=== PATIENT | female | born 2000 | race Caucasian/White ===

== ENCOUNTER 2024-08-02 10:18 | Emergency (ER) | payer SELFPAY ==
--- NOTE | 2024-08-02 10:25 | ECG_ITS ---
[facility]: 2024-08-02 Pat Name: Kayleen Barry Department: Room: Gender: Female Operating Room Surgical Technician: : 2000 Requested By: Dean Coyle Order Number: [id number] Merchant MD: Kip Pierce M.D. Measurements Intervals Lead Rate: 71 P: 62 IA: 113 QRS: 81 QRSD: 110 T: 62 QT: 403 QTc: 440 Interpretive Statements SINUS RHYTHM WITH SINUS ARRHYTHMIA WITH SHORT IA INTERVAL INCOMPLETE RIGHT BUNDLE BRANCH BLOCK [90+ ms QRS DURATION, TERMINAL R IN V1/V2, 40+ ms S IN I/aVL/V4/V5/V6] No previous ECG available for comparison Electronically Signed On 08-04-2024 18:53:59 DRYING ROOM SUPERVISOR by Kip Pierce M.D. [email or web address]
[2024-08-02 10:27] VITALS: BP 144/85; PULSE 69; RESP 17; TEMP 37; O2SAT 100; BMI 23.0
--- NOTE | 2024-08-02 10:30 | XRR_ITS ---
PROCEDURE INFORMATION: Exam: XR Chest Exam date and time: 08/02/2024 10:44 AM Age: 24 years old Clinical indication: Pain; Shortness of breath; Angina pectoris; Patient HX: SOB and weakness; Additional info: Chest pain TECHNIQUE: Imaging protocol: Radiologic exam of the chest. Views: 1 view. COMPARISON: No relevant prior studies available. FINDINGS: Lungs: Unremarkable. No consolidation. Pleural spaces: Unremarkable. No pleural effusion. No pneumothorax. Heart/Mediastinum: Unremarkable. No cardiomegaly. Bones/joints: Unremarkable. XR/XR chest 1V portable [id number] IMPRESSION: No acute findings.
--- NOTE | 2024-08-02 10:35 | ED_ITS ---
HPI - Chest Pain 2 General: Chief Complaint: Chest Pain Stated Complaint: CP, SOB Time Seen by Provider: 08/02/24 10:22 History of Present Illness: Patient presents to the ER with intermittent sharp lightening bolt shooting stabbing chest pain worse when she takes a big deep breath. It started earlier today this time. But it has been going off and on for last 3 months. There is no known triggers or relieving factors. She has been seen by her PCP for this they thought may be due to anxiety they have gave her some anxiety medicine has helped a little bit. Patient was just sitting in her chair laughing and talking today when it started. Patient says when it happens she does get mildly short of breath but denies any nausea vomiting diaphoresis. Related Data Home Medications Medication Instructions Recorded Confirmed buspirone 5 mg tablet 5 mg PO BID 08/02/24 08/02/24 lurasidone 40 mg tablet 40 mg PO DAILY 08/02/24 08/02/24 Allergies Allergy/AdvReac Type Severity Reaction Status Date / Time Penicillins Allergy Unknown Verified 08/02/24 10:30 Review of Systems 2 General: Reports: 10 or more systems reviewed and unremarkable except in HPI and below [facility] ED 2 Female Reproductive History: Date of last menstrual period: 08/02/24 Physical Exam 2 Const: COMMON NORMALS: no acute distress, average body habitus, patient oriented x3, no limitations, healthy appearing, alert and well nourished HENMT: COMMON NORMALS: normocephalic, atraumatic, hearing grossly normal bilaterally, external ears normal, Normal external nose present and moist oral mucous membranes HEAD & SCALP: normocephalic and atraumatic NOSE: Normal external nose present EXTERNAL EAR: Yes external ears normal Neck/C-Spine: COMMON NORMALS: no JVD Chest: COMMONS NORMALS: normal inspection of the chest and normal palpation of entire chest wall Resp: COMMON NORMALS: normal respiratory effort, No retractions, No use of accessory muscles and clear to auscultation bilaterally AUSCULTATION: clear to auscultation bilaterally Cardio: COMMON NORMALS: no JVD, regular rate, regular rhythm, S1 normal heart sound present, S2 normal heart sound present, No gallops present (Cardio), No clicks present (Cardio), No murmurs present (Cardio) and No rub (Cardio) R ATE: regular rate RHYTHM: regular rhythm HEART SOUNDS: S1 normal heart sound present and S2 normal heart sound present GI: COMMON NORMALS: Normal to inspection, nondistended, normoactive bowel sounds present, Soft to palpation, non-tender, No hepatosplenomegaly present and no masses PALPATION: Yes Soft to palpation and Yes No hepatosplenomegaly present Neuro: COMMON NORMALS: patient oriented x3 SENSORIUM/ORIENTATION: Yes alert Course 2 Vital Signs: Vital signs: Vital Signs Temperature 98.6 F 08/02/24 10:27 Pulse Rate 55 L 08/02/24 11:59 Respiratory Rate 17 08/02/24 10:27 Blood Pressure 144/85 08/02/24 10:27 Pulse Oximetry 95 08/02/24 11:59 Oxygen Delivery Me thod Room Air 08/02/24 10:27 MDM - Chest Pain Medical Decision Making Patient worked up in standard chest pain fashion with serial EKGs, serial lab work, chest x-ray, all of which were essentially benign other than patient's hemoglobin of 9.7, these results was discussed with the patient. Patient will be discharged home patient will follow-up with her PCP to discuss change in her anxiety medicine. Medical Records I reviewed the patient's medical records. Lab Data I reviewed the patient's lab results. 08/02/24 10:36 08/02/24 10:36 Radiology Impressions Chest X-Ray 08/02/24 10:30 IMPRESSION: No acute findings. Laboratory Results WBC 6.06 10^3/uL (3.29-11.43) 08/02/24 10:36 RBC 4.50 10^6/uL (3.85-5.65) 08/02/24 10:36 Hgb 9.70 g/dL (11.27-16.99) L 08/02/24 10:36 Hct 33.5 % (36-47) L 08/02/24 10:36 MCV 74.4 fl (85-98) L 08/02/24 10:36 MCH 21.6 pg (27-33) L 08/02/24 10:36 MCHC 29.0 g/dL (30-55) L 08/02/24 10:36 RDW 17.6 % (12.1-15.1) H 08/02/24 10:36 Plt Count 326 10^3/cmm (157-399) 08/02/24 10:36 MPV 10.2 fL (7.4-10.4) 08/02/24 10:36 Neut % (Auto) 58.5 % 08/02/24 10:36 Lymph % (Auto) 22.1 % 08/02/24 10:36 [place] % (Auto) 9.6 % 08/02/24 10:36 Eos % (Auto) 7.8 % 08/02/24 10:36 Baso % (Auto) 1.8 % 08/02/24 10:36 Neut # (Auto) 3.55 10^3/uL (1.8-7.7) 08/02/24 10:36 Lymph # (Auto) 1.3 10^3/uL (0.8-4.8) 08/02/24 10:36 [place] # (Auto) 0.6 10^3/uL (0.2-0.9) 08/02/24 10:36 Eos # (Auto) 0.5 10^3/uL (0.0-0.8) 08/02/24 10:36 Baso # (Auto) 0.1 10^3/uL (0.0-0.1) 08/02/24 10:36 Nucleated RBC % (auto) 0 % 08/02/24 10:36 Nucleated RBCs # 0.0 /100WBC 08/02/24 10:36 Sodium 139 mmol/L (136-145) 08/02/24 10:36 Potassium 4.3 mmol/L (3.5-5.1) 08/02/24 10:36 Chloride 104 mmol/L (98-107) 08/02/24 10:36 Carbon Dioxide 25 mmol/L (22-29) 08/02/24 10:36 Anion Gap 14.3 (5-19) 08/02/24 10:36 BUN 14 mg/dL (6-20) 08/02/24 10:36 Creatinine 0.7 mg/dL (0.5-0.9) 08/02/24 10:36 GFR Calculation 101.1 mL/min (90-130) 08/02/24 10:36 Glucose 82 mg/dL (65-115) 08/02/24 10:36 Calculated Osmolality 288 mOsm/kg (285-295) 08/02/24 10:36 Calcium 9.0 mg/dL (8.5-10.5) 08/02/24 10:36 Total Bilirubin 0.2 mg/dL (0.15-1.2) 08/02/24 10:36 AST 18 U/L (0-32) 08/02/24 10:36 ALT 14 U/L (0-33) 08/02/24 10:36 Alkaline Phosphatase 53 U/L (35-105) 08/02/24 10:36 Troponin T Baseline < 6 ng/L (0-10) 08/02/24 10:36 Troponin T 120 Minute 6.00 ng/L (0-10) 08/02/24 12:29 Delta Troponin T 0.91394 ABS# (0-10) 08/02/24 12:29 Total Protein 7.1 g/dL (6.6-8.7) 08/02/24 10:36 Albumin 4.5 g/dL (3.5-5.2) 08/02/24 10:36 Globulin 2.6 g/dL (1.3-4.6) 08/02/24 10:36 All radiology interpretation(s) finalized by discharge Discharge Plan Discharge Patient Disposition: Home Clinical Impression: Atypical chest pain, Anxiety Condition: Stable Prescriptions: No Action buspirone 5 mg tablet 5 mg PO BID lurasidone 40 mg tablet 40 mg PO DAILY Discharge Orders: Discharge ED (Routine); Ordered 08/02/24 Ordered By: Dean Coyle Patient Instructions: Chest Pain (ED), Anxiety (ED) Activity Restrictions/Additional Instructions: Thank you for choosing [facility] for your healthcare needs today. Please realize that you were seen in the emergency department and that we are providing you with an emergency medical screening exam and this may not be a complete and all exclusive of all testing and/or medical workup we may need to determine your element or severity of your illness. It is very important that you follow-up as instructed with your primary care provider or specialist for the additional evaluation and to discuss your medical treatment plan. You may return to the emergency department should you have concerns or if your condition changes or worsens in any way. Coding Level of Care Code ED Process Project Engineer for Bessie Hancock
[2024-08-02 10:45] LABS: Basophils # 0.1 10^3/uL (0.0-0.1); Basophils % 1.8 %; Eosinophils # 0.5 10^3/uL (0.0-0.8); Eosinophils % 7.8 %; Hematocrit 33.5 % (36-47); Lymphocytes # 1.3 10^3/uL (0.8-4.8); Lymphocytes % 22.1 %; Mean Corpuscular Hemoglobin 21.6 pg (27-33); Mean Corpuscular Volume 74.4 fl (85-98); Mean Platelet Volume 10.2 fL (7.4-10.4); Monocytes # 0.6 10^3/uL (0.2-0.9); Monocytes % 9.6 %; Neutrophils # 3.55 10^3/uL (1.8-7.7); Neutrophils % 58.5 %; Nucleated Red Blood Cells % 0 %; Platelet Count 326 10^3/cmm (157-399); Red Cell Distribution Width 17.6 % (12.1-15.1); White Blood Count 6.06 10^3/uL (3.29-11.43)
[2024-08-02 11:02] LABS: Troponin(5th) Baseline < 6 ng/L (0-10)
[2024-08-02 11:10] LABS: Alanine Aminotransferase 14 U/L (0-33); Albumin Level 4.5 g/dL (3.5-5.2); Alkaline Phosphatase 53 U/L (35-105); Anion Gap 14.3 (5-19); Aspartate Amino Transferase 18 U/L (0-32); Blood Urea Nitrogen 14 mg/dL (6-20); Carbon Dioxide 25 mmol/L (22-29); Chloride 104 mmol/L (98-107); Creatinine Clr Calc Pharmacy 105.7956; Globulin 2.6 g/dL (1.3-4.6); Glomerular Filtration Rate 101.1 mL/min (90-130); Glucose 82 mg/dL (65-115); Osmolality Calculated 288 mOsm/kg (285-295); Potassium 4.3 mmol/L (3.5-5.1); Sodium 139 mmol/L (136-145); Total Bilirubin 0.2 mg/dL (0.15-1.2); Total Protein 7.1 g/dL (6.6-8.7)
[2024-08-02 11:59] VITALS: PULSE 55; O2SAT 95
--- NOTE | 2024-08-02 12:50 | ECG_ITS ---
[facility] Test Date: 2024-08-02 Pat Name: Kayleen Barry Department: Room: Gender: Female Professional Development Instructor: : 2000 Requested By: Dean Coyle Order Number: [id number] Merchant MD: Kip Pierce M.D. Measurements Intervals [place] Rate: 56 P: 68 CO: 108 QRS: 85 QRSD: 110 T: 67 QT: 419 QTc: 407 Interpretive Statements SINUS BRADYCARDIA WITH SINUS ARRHYTHMIA WITH SHORT CO INTERVAL Compared to ECG 08/02/2024 10:25:15 Sinus rhythm no longer present Incomplete right bundle-branch block no longer present Electronically Signed On 08-04-2024 19:10:29 GREASE PACKER by Kip Pierce M.D. [email or web address]
[2024-08-02 12:55] LABS: Troponin 5 2HR Delta 0.00001 ABS# (0-10)
[2024-08-02 13:14] VITALS: BP 127/85; PULSE 64; O2SAT 95
[2024-08-02 13:20] VITALS: BP 119/76; PULSE 60; O2SAT 99
== END 2024-08-02 13:21 | disposition home or self-care (01) ==
PROVIDERS: Emergency Provider Emergency Medicine
DX: R07.89 Other chest pain (principal); F41.9 Anxiety disorder, unspecified
CPT/HCPCS: 71045; 80053; 84484; 85025; 93005; 99285